=== PATIENT | female | born 1970 ===

== ENCOUNTER 2018-06-02 10:46 | Emergency (ER) | payer OTHER ==
[~2018-06-02] VITALS: Ht 167.6 cm; Wt 65.8 kg
== END 2018-06-02 13:13 | disposition home or self-care (01) ==
LOC: ER 10:46
DX: S00.83XA Contusion of other part of head, initial encounter (principal); S13.4XXA Sprain of ligaments of cervical spine, initial encounter; W18.39XA Other fall on same level, initial encounter; Y93.89 Activity, other specified; Y92.098 Other place in other non-institutional residence as the place of occurrence of the external cause; Y99.8 Other external cause status